=== PATIENT | female | born 1960 | race African-American/Black ===

== ENCOUNTER 2022-02-17 06:36 | Inpatient (IN) | payer OTHER ==
[2022-02-17] MEDS ORDERED: SODIUM CHLORIDE 0.9% 500 ML INFUS.BAG IV ONE (07:15)
[2022-02-17] MEDS ORDERED: ONDANSETRON 4 MG/2 ML VIAL IVPUSH ONE (07:15)
[2022-02-17] MEDS ORDERED: MECLIZINE HCL 25 MG TABLET (FP) PO ONE ×2 (07:15→09:26)
[2022-02-17] MEDS ORDERED: MECLIZINE HCL 25 MG TABLET (FP) ONE ×2 (07:50→09:28)
[2022-02-17] MEDS ORDERED: ONDANSETRON 4 MG/2 ML VIAL ONE (07:50)
[2022-02-17 08:13] LABS: BASO % 0.6 % (0-2.0); EOS % 0.5 % (0-4.5); EPI CELLS 4 /uL (0-25.1); HEMATOCRIT 37.7 % (32.4-45.2); HEMOGLOBIN 12.3 GM/dL (10.7-15.3); HYALINE CASTS 0 /uL (0-3.1); LYMPH % 15.2 % (8-40); MCH 28.2 pg (25.7-33.7); MCHC 32.6 g/dl (32.0-36.0); MEAN CELL VOLUME 86.4 fl (80-96); MEAN PLT VOLUME 9.7 fl (7.5-11.1); MONO % 4.2 % (3.8-10.2); NEUT % 79.5 % (42.8-82.8); PLATELET COUNT 198 10^3/uL (134-434); RBC 4.37 M/mm3 (3.60-5.2); RDW 13.1 % (11.6-15.6); URINE APPEARANCE CLEAR; URINE BACTERIA 43 /uL (0-1359); URINE BILIRUBIN NEGATIVE (NEGATIVE); URINE COLOR YELLOW; URINE GLUCOSE (UA) NEGATIVE (NEGATIVE); URINE KETONE NEGATIVE (NEGATIVE); URINE LEUK ESTERASE NEGATIVE (NEGATIVE); URINE NITRITE NEGATIVE (NEGATIVE); URINE PROTEIN NEGATIVE (NEGATIVE); URINE RBC 30 /uL (0-23.9); URINE UROBILINOGEN 0.2 mg/dL (0.2-1.0); URINE WBC 1 /uL (0-25.8); WHITE BLOOD COUNT 7.1 K/mm3 (4.0-10.0)
[2022-02-17 08:29] LABS: CALCIUM 8.7 mg/dL (8.5-10.1)
[2022-02-17 08:30] LABS: ALBUMIN 3.6 g/dl (3.4-5.0); MAGNESIUM 2.1 mg/dL (1.8-2.4)
[2022-02-17 08:34] LABS: BILIRUBIN,TOTAL 0.3 mg/dL (0.2-1); TOT PROT 7.4 g/dl (6.4-8.2)
[2022-02-17 08:37] LABS: CREATININE 0.8 mg/dL (0.55-1.3)
[2022-02-17] MEDS ORDERED: POTASSIUM CHLORIDE TABS 20 MEQ TABLET.ER (FP) PO ONE ×2 (09:21→09:29)
[2022-02-17] MEDS ORDERED: FLU VACC QS2021-22(6MOS UP)/PF 60 MCG/0.5 ML SYRINGE IM ONE (15:09)
[2022-02-17 15:46] VITALS: BMI 30.2
[2022-02-17] MEDS: MECLIZINE HCL 12.5 MG TABLET PO SCH ×2 (16:53→22:10)
[2022-02-17] MEDS: ACETAMINOPHEN 325 MG TABLET (FP) PO PRN (16:53)
[2022-02-18] MEDS: MECLIZINE HCL 12.5 MG TABLET PO SCH (05:15)
[2022-02-18] MEDS ORDERED: MECLIZINE HCL 25 MG TABLET (FP) PO SCH ×2 (07:28→12:00)
[2022-02-18 09:08] VITALS: BP 113/61; PULSE 63; TEMP 98.9
[2022-02-18] MEDS: ACETAMINOPHEN 325 MG TABLET (FP) PO PRN (09:11)
[2022-02-18] MEDS ORDERED: amLODIPine BESYLATE 10 MG TABLET (FP) PO SCH (10:00)
[2022-02-18] MEDS ORDERED: ASPIRIN 81 MG CHEWABLE TABLETS PO SCH (10:00)
[2022-02-18] MEDS ORDERED: CHOLECALCIFEROL (VIT D3) 1,000 UNIT (25 MCG) TABLET PO SCH (10:00)
[2022-02-18 10:02] LABS: BLOOD UREA NITROGEN 16.9 mg/dL (7-18); CALCIUM 9.4 mg/dL (8.5-10.1); MAGNESIUM 2.2 mg/dL (1.8-2.4)
[2022-02-18 10:05] LABS: CREATININE 0.7 mg/dL (0.55-1.3)
== END 2022-02-18 11:46 | disposition home or self-care (01) | DRG 111 ==
LOC: JER 06:36 → JERBED 10:45 → J6S 14:45 → OBSVTOIN 16:25
PROVIDERS: ADMIT Internal Medicine; ATTEND Nurse Practitioner Acute Care
DX: H81.10 Benign paroxysmal vertigo, unspecified ear (principal); I10 Essential (primary) hypertension; E87.6 Hypokalemia; R11.2 Nausea with vomiting, unspecified; R26.2 Difficulty in walking, not elsewhere classified
CPT/HCPCS: 36415; 70450-TC; 80048; 80053; 81003; 83735; 84484; 85025; 87086; 90686; 93005; 93010; 99285-25; C9803-CS; G0008; G0378; U0003; U0005